=== PATIENT | female | born 1955 | race Caucasian/White ===

== ENCOUNTER 2018-09-18 06:32 | Day surgery (SDC) | payer BC ==
[2018-09-18] MEDS ORDERED: LIDOCAINE 2% MDV (20MG/ML) 20ML VIAL IV ONE (06:33)
[2018-09-18] MEDS ORDERED: PROPOFOL 10 MG/ML VIAL IV ONE (06:33)
--- NOTE | 2018-09-19 09:10 | Operative Note ---
OPERATION: COLONOSCOPY with cold forceps polypectomy. PREOPERATIVE DIAGNOSIS: Colon cancer screening. POSTOPERATIVE DIAGNOSES: 1. Good quality colonic prep. 2. Ascending colon polyp. ESTIMATED BLOOD LOSS: Minimum. SPECIMENS: Ascending colon. COMPLICATIONS: None apparent. PROCEDURE: After informed consent was obtained from the patient, she was placed in the left lateral decubitus position in the endoscopy suite, sedated and monitored by the department of anesthesia. Digital rectal examination was unremarkable. A well-lubricated APZ615 colonoscope was inserted into the rectum and advanced to the cecum. The cecum, cecal bulb, and ileocecal valve were visualized. There was some retained fluid and stool in the cecum which was aspirated via the endoscope. The remainder of the cecum was otherwise unremarkable. The ascending colon revealed a diminutive polyp removed with a cold forceps. The remainder of the ascending colon, transverse colon, descending colon, sigmoid colon, and rectum were free of inflammatory changes, mass lesions, or polyps. Forward and J-turn views of the rectum and anorectum were unrevealing. The endoscope was straightened, the rectal ampulla deflated, and the endoscope was removed. RECOMMENDATIONS: The patient should resume her medications and diet. I recommend a repeat exam in 5 years pending tissue histology. As always, thank you for allowing me to participate in the healthcare of your patients. CC: GINA Berrios
== END 2018-09-18 09:04 | disposition home or self-care (01) ==
LOC: HOP 06:32
PROVIDERS: ATTEND Internal Medicine Gastroenterology
DX: Z12.11 Encounter for screening for malignant neoplasm of colon (principal); D12.2 Benign neoplasm of ascending colon; E11.9 Type 2 diabetes mellitus without complications; E78.00 Pure hypercholesterolemia, unspecified; I10 Essential (primary) hypertension